=== PATIENT | female | born 2000 | race Caucasian/White ===

== ENCOUNTER 2021-12-19 00:02 | Emergency (ER) | payer OTHER ==
[~2021-12-19] VITALS: Ht 157.5 cm; Wt 85.5 kg
[2021-12-19] MEDS ORDERED: ALBU8HFA IH (00:14)
[2021-12-19 00:30] LABS: COVID AG,FIA SOURCE NASAL SWAB
[2021-12-19 00:43] LABS: RAPID GROUP A STREP NEGATIVE (NEGATIVE)
[2021-12-19 00:52] LABS: INFLUENZA TYPE B NEGATIVE FOR TYPE B (NEGATIVE)
[2021-12-19 01:05] LABS: INFLUENZA TYPE A POSITIVE FOR TYPE A (NEGATIVE)
[2021-12-19] MEDS ORDERED: SODIUM CHLORIDE 0.9% 1,000 ML IV ONE (01:45)
[2021-12-19] MEDS ORDERED: KETOROLAC TROMETHAMINE 30 MG/ML VIAL IVP ONE (01:45)
[2021-12-19] MEDS ORDERED: ACETAMINOPHEN/CODEINE 300-30 MG TABLET PO ONE (01:45)
[2021-12-19] MEDS ORDERED: GuaiFENesin/D-METHORPHAN [SUGAR-FREE] 200-20MG/10 ML SYRUP UDCUP PO ONE (01:45)
[2021-12-19] MEDS ORDERED: IBUP-1554 PO (02:48)
[2021-12-19] MEDS ORDERED: GUAIFDM PO (02:48)
[2021-12-19] MEDS ORDERED: ACET-2080 PO (02:48)
[2021-12-19 03:15] VITALS: BP 138/77
== END 2021-12-19 04:29 | disposition home or self-care (01) ==
LOC: EMS 00:12
DX: R53.1 Weakness (principal); J10.1 Influenza due to other identified influenza virus with other respiratory manifestations; J45.909 Unspecified asthma, uncomplicated; F17.210 Nicotine dependence, cigarettes, uncomplicated; Z20.822 Contact with and (suspected) exposure to COVID-19
CPT/HCPCS: 99284; 96374; 96361; 87426; 87430; 87804; 81025; 93005; J1885; J7030